=== PATIENT | male | born 1985 | race Caucasian/White ===

== ENCOUNTER 2023-12-28 10:10 | Emergency (ER) | payer BC, SELFPAY ==
[2023-12-28 11:03] LABS: Absolute Lymphocytes (CBC) 1.5 K/uL (0.7-4.9); Absolute Monocytes 1.1 K/uL (0.1-1.3); Absolute Neutrophil 7.1 K/uL (1.8-8.0); Basophils % 0.4 % (0-1.3); Eosinophils % 0.4 % (0-4.4); Hematocrit 40.3 % (39.6-49.0); Hemoglobin 13.4 g/dL (13.6-17.9); Lymphocytes % 15.3 % (15.3-44.8); MCH 31.1 pg (27.0-35.0); MCHC 33.2 g/dL (32.0-36.0); MCV 93.6 fL (80-100); MPV 8.1 fL (7.6-11.3); Monocytes % 11.1 % (3.3-12.3); Neutrophils % 72.8 % (41.7-73.7); Platelets 199 thou/uL (152-406); RBC Red Blood Cell Count 4.31 M/uL (4.33-5.43); Red Cell Distribution Width 13.6 % (12.1-15.2)
[2023-12-28 11:21] LABS: Albumin 3.4 g/dL (3.4-5.0); Albumin/Globulin Ratio 0.9 (1.1-1.8); Anion Gap 7.4 mEq/L (5.0-15.0); Bilirubin Direct 0.3 mg/dL (0-0.2); Bilirubin Indirect, Calculated 0.7 mg/dL (0.2-0.8); Magnesium 2.1 mg/dL (1.6-2.4); Potassium 4.4 mEq/L (3.5-5.1); Protein, Total 7.4 g/dL (6.4-8.2)
--- NOTE | 2023-12-28 11:21 | RAD REPORT ---
EXAM DESCRIPTION: CT - Chest For Pe Angio - 12/28/2023 10:55 am CLINICAL HISTORY: Chest pain COMPARISON: October 2023 TECHNIQUE: Dynamically enhanced axial 3 mm thick images of the chest were obtained during administra tion of 100 mL Isovue 370 IV contrast. Coronal and oblique reconstruction images were generated and r eviewed. Exam utilizes a protocol for optimal evaluation of pulmonary arterial tree. Maximum intensity projections 3D imaging was utilized All CT scans are performed using dose optimization technique as appropriate and may include automated exposure control or mA/KV adjustment according to patient size. FINDINGS: Suboptimal opacification of pulmonary arteries. No central pulmonary embolus seen. Evaluat ion of the more peripheral pulmonary arteries is nondiagnostic. A thoracic aortic aneurysm is not noted. A pleural effusion is not seen. Small to moderate pericardial effusion without significant change. A lung consolidation is not present. IMPRESSION: No gross central pulmonary embolus Small to moderate pericardial effusion
[2023-12-28 11:23] LABS: Troponin High Sensitivity 298.4 pg/mL (<58.9)
--- NOTE | 2023-12-28 12:52 | EDPHYS ---
Physician Documentation [facility] Name: Kevin Padilla Age: 38 yrs Sex: Male : 1985 Arrival Date: 12/28/2023 Time: 10:10 Bed 7 Private MD: ED Physician Kyler Rosales HPI: 12/27 11:52 This 38 yrs old Male presents to ER via Ambulatory with complaints of Chest Pain. rt 11:52 Females ago, the patient had a pericardial drain that was placed in [place]. Patient had rt a recent evaluation in this ED, was found to have a pericardial effusion, subsequently sent to [facility] for pericardial window. Patient has had chest pain over the past few days. It does change with position. Denies other acute complaints at this time, symptoms are moderate in severity, no other aggravating or alleviating factors.. Historical: - Allergies: 10:38 No Known Allergies; tm6 - PMHx: 10:38 Cerebrovascular accident; clot in heart; Myocardial infarction; pleural effusion; tm6 pericardial effusion; Congestive heart failure; intestinal paralysis; Hypertensive disorder; Hypercholesterolemia; - PSHx: 10:38 pericardial window; tm6 - Immunization history:: Client reports receiving the 2nd dose of the Covid vaccine. - Infectious Disease History:: Denies. - Social history:: Smoking status: Patient/guardian denies using tobacco, Stopped _ months ago 3 Patient uses alcohol, but reports only rare drinking. - Family history:: not pertinent. ROS: 10:38 Constitutional: Negative for fever, chills, and weight loss, Respiratory: Negative for rt shortness of breath, cough, wheezing, and pleuritic chest pain, Abdomen/GI: Negative for abdominal pain, nausea, vomiting, diarrhea, and constipation, MS/Extremity: Negative for injury and deformity, Skin: Negative for injury, rash, and discoloration, Neuro: Negative for headache, weakness, numbness, tingling, and seizure, 10:38 Cardiovascular: Positive for chest pain, Negative for edema, Exam: 10:38 Constitutional: This is a well developed, well nourished patient who is awake, alert, rt and in no acute distress. Head/Face: Normocephalic, atraumatic. Chest/axilla: Normal chest wall appearance and motion. Nontender with no deformity. No lesions are appreciated. Cardiovascular: Regular rate and rhythm with a normal S1 and S2. No gallops, murmurs, or rubs. Normal PMI, no JVD. No pulse deficits. Respiratory: Lungs have equal breath sounds bilaterally, clear to auscultation and percussion. No rales, rhonchi or wheezes noted. No increased work of breathing, no retractions or nasal flaring. Abdomen/GI: Soft, non-tender, with normal bowel sounds. No distension or tympany. No guarding or rebound. No evidence of tenderness throughout. Skin: Warm, dry with normal turgor. Normal color with no rashes, no lesions, and no evidence of cellulitis. MS/ Extremity: Pulses equal, no cyanosis. Neurovascular intact. Full, normal range of motion. Neuro: Awake and alert, GCS 15, oriented to person, place, time, and situation. Cranial nerves II-XII grossly intact. Motor strength 5/5 in all extremities. Sensory grossly intact. Cerebellar exam normal. Normal gait. 10:38 ECG was reviewed by the Attending Physician. Vital Signs: 10:36 BP 106 / 66; Pulse 98; Resp 21; Temp 99.9(O); Pulse Ox 95% on R/A; MAP 78 mmHg; Weight tm6 152.41 kg; Height 6 ft. 2 in. ; Pain 4/10; 12:16 BP 85 / 57; Pulse 92; Resp 20 S; Pulse Ox 94% ; Pain 1/10; iw 12:26 BP 107 / 61; Pulse 94; Resp 20 S; Pulse Ox 94% ; iw 13:37 BP 102 / 76; Pulse 92; Pulse Ox 93% on R/A; tm6 10:36 Body Mass Index 43.14 (152.41 kg, 187.96 cm) tm6 10:36 Pain Scale: Adult tm6 12:16 Pain Scale: Adult iw MDM: 10:18 Patient medically screened. rt 15:10 Differential diagnosis: ACS, pericardial effusion, pulmonary embolus. Data reviewed: rt vital signs, nurses notes. Consideration of Admission/Observation Patient requires transfer for higher level of care. I considered the following discharge prescriptions or medication management in the emergency department Medications were administered in the Emergency Department. See MAR. Independent interpretation of the following test(s) in the Emergency Department CT Scan: My interpretation is No pulmonary edema seen on interpretation of CT scan images. Test considered but Not performed: X-ray: CT scan ordered, x-rays redundant. Care significantly affected by the following chronic conditions: PE, pericardial effusion. Counseling: I had a detailed discussion with the patient and/or guardian regarding the historical points, exam findings, and any diagnostic results supporting the discharge/admit diagnosis, lab results, radiology results, the need for further work-up and treatment in the hospital. Response to treatment: the patient's symptoms have mildly improved after treatment. 12/27 10:28 Order name: Basic Metabolic Panel; Complete Time: 11: rt 12/27 10:28 Order name: CBC with Diff; Complete Time: 11: rt 12/27 10:28 Order name: LFT's; Complete Time: : rt 12/27 10:28 Order name: Magnesium; Complete Time: : rt 12/27 10:28 Order name: NT PRO-BNP; Complete Time: 11: rt 12/27 10:28 Order name: Troponin HS; Complete Time: : rt 12/27 10:28 Order name: CT Chest For PE Angio; Complete Time: 11: rt 12/27 10:28 Order name: Cardiac monitoring; Complete Time: 10:35 rt 12/27 10:28 Order name: EKG - Nurse/Tech; Complete Time: 10:35 rt 12/27 10:28 Order name: IV Saline Lock; Complete Time: 11:04 rt 12/27 10:28 Order name: Labs collected and sent; Complete Time: 11:04 rt 12/27 10:28 Order name: O2 Per Protocol; Complete Time: 10:35 rt 12/27 10:28 Order name: O2 Sat Monitoring; Complete Time: 10:35 rt EC:38 Rate is 97 beats/min. Rhythm is regular, Normal Sinus Rhythm with No ectopy. QRS [place] rt is Normal. SC interval is normal. QRS interval is normal. QT interval is normal. No Q waves. No ST changes noted. Interpreted by me. Administered Medications: 14:41 Drug: Aspirin PO Chewable Tablet 324 mg PO once; 81 mg tablets x 4 Route: PO; tm6 15:41 Follow up: Response: No adverse reaction tm6 Disposition: 15:10 Critical Care:. rt Disposition Summary: 12/28/23 12:52 Transfer Ordered Notes: Transfer Location: [facility] rt Reason: Higher level of care rt Condition: Stable rt Problem: an acute exacerbation rt Symptoms: have improved rt Accepting Physician: (12/28/23 15:54) tm6 Diagnosis - Pericardial effusion (noninflammatory) rt - Subsequent non-ST elevation (NSTEMI) myocardial infarction rt Forms: - Medication Reconciliation Form rt - SBAR form rt Critical care time excluding procedures: 15:10 Critical care time: Bedside Care: 30 minutes, Consultation: 5 minutes. Total time: 35 rt minutes Signatures: Dispatcher [employer] EDMS Kyler Rosales MD MD rt Valeria Villegas RN RN tm6 Corrections: (The following items were deleted from the chart) 10:28 10:28 BASIC METABOLIC PANEL+C.LAB.BRZ ordered. EDMS EDMS 10:28 10:28 CBC+H.LAB.BRZ ordered. EDMS EDMS 10:28 10:28 HEPATIC FUNCTION+C.LAB.BRZ ordered. EDMS EDMS 10:28 10:28 MAGNESIUM+C.LAB.BRZ ordered. EDMS EDMS 10:28 10:28 PROBNP+C.LAB.BRZ ordered. EDMS EDMS 10:28 10:28 Troponin High Sensitivity+C.LAB.BRZ ordered. EDMS EDMS 10:28 10:28 Chest For PE Angio+CT.RAD.BRZ ordered. EDMS EDMS 15:54 12:52 rt tm6
--- NOTE | 2023-12-28 12:52 | ER ---
Nurse's Notes [facility] Name: Kevin Padilla Age: 38 yrs Sex: Male : 1985 Arrival Date: 12/28/2023 Time: 10:10 Bed 7 Private MD: Diagnosis: Pericardial effusion (noninflammatory);Subsequent non-ST elevation (NSTEMI) myocardial infarction Presentation: 12/27 10:36 Chief complaint: Patient states: general muscle weakness x3 weeks. Piercing chest pain tm6 x3 days, worsening with cough, movement, or lying down. Coronavirus screen: Vaccine status: Patient reports receiving the 2nd dose of the covid vaccine. Ebola Screen: Patient negative for fever greater than or equal to 101.5 degrees Fahrenheit, and additional compatible Ebola Virus Disease symptoms Patient denies exposure to infectious person. Patient denies travel to an Ebola-affected area in the 21 days before illness onset. No symptoms or risks identified at this time. Initial Sepsis Screen: Does the patient meet any 2 criteria? No. Patient's initial sepsis screen is negative. Does the patient have a suspected source of infection? No. Patient's initial sepsis screen is negative. Initial Sepsis Screen: Does the patient meet any 2 criteria?. Risk Assessment: Do you want to hurt yourself or someone else? Patient reports no desire to harm self or others. Onset of symptoms was December 25, 2023. 10:36 Method Of Arrival: Ambulatory tm6 10:36 Acuity: BRIELLE 3 tm6 Triage Assessment: 10:38 General: Appears in no apparent distress. Behavior is calm, cooperative. Pain: tm6 Complains of pain in mid-sternal area Pain does not radiate. Pain currently is 3 out of 10 on a pain scale. Quality of pain is described as piercing, Pain began 2-3 days ago. EENT: No signs and/or symptoms were reported regarding the EENT system. Neuro: Level of Consciousness is awake, alert, obeys commands, Oriented to person, place, time, situation. Cardiovascular: Reports chest pain, Patient's skin is warm and dry. Rhythm is regular Chest pain is described as mild, quality is piercing. Respiratory: Airway is patent Respiratory effort is even, unlabored, Respiratory pattern is regular, symmetrical. GI: No signs and/or symptoms were reported involving the gastrointestinal system. Abdomen is round obese. : No signs and/or symptoms were reported regarding the genitourinary system. Derm: No signs and/or symptoms reported regarding the dermatologic system. Musculoskeletal: Reports general muscle weakness x3 weeks. Historical: - Allergies: 10:38 No Known Allergies; tm6 - PMHx: 10:38 Cerebrovascular accident; clot in heart; Myocardial infarction; pleural effusion; tm6 pericardial effusion; Congestive heart failure; intestinal paralysis; Hypertensive disorder; Hypercholesterolemia; - PSHx: 10:38 pericardial window; tm6 - Immunization history:: Client reports receiving the 2nd dose of the Covid vaccine. - Infectious Disease History:: Denies. - Social history:: Smoking status: Patient/guardian denies using tobacco, Stopped _ months ago 3 Patient uses alcohol, but reports only rare drinking. - Family history:: not pertinent. Screenin:41 [facility] ED Fall Risk Assessment (Adult) History of falling in the last 3 months, tm6 including since admission No falls in past 3 months (0 pts) Confusion or Disorientation No (0 pts) Intoxicated or Sedated No (0 pts) Impaired Gait No (0 pts) Mobility Assist Device Used No (0 pt) Altered Elimination No (0 pt) Score/Fall Risk Level 0 - 2 = Low Risk Oriented to surroundings, Maintained a safe environment, Educated pt \T\ family on fall prevention, incl call for assistance when getting out of bed. Abuse screen: Denies threats or abuse. Denies injuries from another. Nutritional screening: No deficits noted. Tuberculosis screening: No symptoms or risk factors identified. Assessment: 10:41 Reassessment: see triage assessment. Pain: Complains of pain in chest and mid-sternal tm6 area. 12:31 Reassessment: Patient appears in no apparent distress at this time. Patient and/or tm6 family updated on plan of care and expected duration. Pain level reassessed. Patient is alert, oriented x 3, equal unlabored respirations, skin warm/dry/pink. Pain: Pain does not radiate. Quality of pain is described as piercing. 13:37 Reassessment: Patient appears in no apparent distress at this time. Patient and/or tm6 family updated on plan of care and expected duration. Pain level reassessed. Patient is alert, oriented x 3, equal unlabored respirations, skin warm/dry/pink. Pain: Pain began 2-3 days ago. 15:30 Reassessment: report attempted, no answer. tm6 15:41 Reassessment: report attempted, no answer. tm6 15:53 Reassessment: report given to Kaycee SANTOS at [facility]. tm6 Vital Signs: 10:36 BP 106 / 66; Pulse 98; Resp 21; Temp 99.9(O); Pulse Ox 95% on R/A; MAP 78 mmHg; Weight tm6 152.41 kg; Height 6 ft. 2 in. ; Pain 4/10; 12:16 BP 85 / 57; Pulse 92; Resp 20 S; Pulse Ox 94% ; Pain 1/10; iw 12:26 BP 107 / 61; Pulse 94; Resp 20 S; Pulse Ox 94% ; iw 13:37 BP 102 / 76; Pulse 92; Pulse Ox 93% on R/A; tm6 10:36 Body Mass Index 43.14 (152.41 kg, 187.96 cm) tm6 10:36 Pain Scale: Adult tm6 12:16 Pain Scale: Adult iw ED Course: 10:13 Patient arrived in ED. mr 10:13 Kyler Rosales MD is Attending Physician. rt 10:35 Valeria Villegas, RN is Primary Nurse. tm6 10:35 EKG done, by ED staff, reviewed by Kyler Rosales MD. tm6 10:38 Triage completed. tm6 10:38 Arm band placed on right wrist. tm6 10:41 Patient maintains SpO2 saturation greater than 95% on room air. tm6 10:41 Patient has correct armband on for positive identification. Bed in low position. Call tm6 light in reach. Side rails up X 1. Provided Education on: use of call peoples. Client placed on continuous cardiac and pulse oximetry monitoring. NIBP monitoring applied. monitor technician on. Pulse ox on. NIBP on. Door closed. Noise minimized. 10:52 Inserted saline lock: 20 gauge in right antecubital area, using aseptic technique. tm6 Blood collected. Flushed with 10 mL NS. 10:56 CT Chest For PE Angio In Process Unspecified. EDMS 11:04 Basic Metabolic Panel Sent. tm6 11:04 CBC with Diff Sent. tm6 11:04 LFT's Sent. tm6 11:04 Magnesium Sent. tm6 11:04 NT PRO-BNP Sent. tm6 11:04 Troponin HS Sent. tm6 11:23 Notified ED physician of a critical lab result(s). troponin 298.4. ap3 12:40 initiated a transfer with Arely Molina Rn from the [facility]/. eb 13:18 connected the hospitalist on for [facility] with Dr. Rosales for patient eb transfer consultation. 14:59 administrative approval given by Arely Molina Rn/ patient has been accepted to [facility] [address] [place] [address] bed [id number]/ Dr. Paul Lewis has accepted the patient in transfer/ report to be called to [phone]. 15:54 No provider procedures requiring assistance completed. Patient transferred, IV remains tm6 in place. Administered Medications: 14:41 Drug: Aspirin PO Chewable Tablet 324 mg PO once; 81 mg tablets x 4 Route: PO; tm6 15:41 Follow up: Response: No adverse reaction tm6 Medication: 10:41 VIS not applicable for this client. tm6 Outcome: 12:52 ER care complete, transfer ordered by . rt 15:54 Transferred by ground EMS [facility] to [facility], tm6 15:54 Condition: stable 15:54 Instructed on the need for transfer, 15:54 Patient left the ED. tm6 Signatures: Dispatcher [employer] EDMS Eliza Damon, Reg Reg mr Rachel Austin, RN RN Holly Wilcox RN RN ap3 Irena Sarmietno Kyler Rosales MD MD rt Masterson, Tawney, RN RN tm6 Corrections: (The following items were deleted from the chart) 12:17 12:16 BP 85 / 57; Pulse 92bpm; Resp 18bpm; Pulse Ox 94%; Pain 1/10, Adult; iw anel
[2023-12-28] MEDS ORDERED: ASPIRIN 81 MG CHEWABLE TABLET ONE (14:39)
[2023-12-28 16:56] VITALS: TEMP 99.9
[2023-12-28 17:01] VITALS: BP 102/76; O2SAT 93
--- NOTE | 2023-12-29 13:55 | EKG ---
Test Date: 2023-12-28 Test Time: 10:27:01 [employer]: DUY MEASUREMENT RESULTS: Intervals: Rate: 97 NE: 198 QRSD: 116 QT: 354 QTc: 449 [place]: P: -4 NE: 198 QRS: -14 T: 79 INTERPRETIVE STATEMENTS: Normal sinus rhythm T wave abnormality, consider lateral ischemia Abnormal ECG Compared to ECG 10/10/2023 21:40:47 T-wave abnormality now present ST (T wave) deviation no longer present Prolonged QT interval no longer present Possible ischemia still present Electronically Signed On 12-29-23 13:54:16 CDT by Krishna Campbell
== END 2023-12-28 15:54 | disposition short-term general hospital (02) ==
LOC: ER 10:10
DX: I31.39 Other pericardial effusion (noninflammatory) (principal); I22.2 Subsequent non-ST elevation (NSTEMI) myocardial infarction; I21.9 Acute myocardial infarction, unspecified; I10 Essential (primary) hypertension; Z86.73 Personal history of transient ischemic attack (TIA), and cerebral infarction without residual deficits
CPT/HCPCS: 93005; 85025; 80048; 36415; 83735; 80076; 84484; 83880; 71275; 99285; Q9967